=== PATIENT | female | born 1950 | race American Indian/Alaskan Native ===

== ENCOUNTER 2019-01-25 11:18 | Outpatient (CLI) | payer BC ==
--- NOTE | 2019-01-25 14:14 | Ultrasound Report ---
Bladder Ultrasound HISTORY: URINE INCONTINENCE. TECHNIQUE: Grayscale and color Doppler imaging performed. COMPARISON: None FINDINGS: Prevoid bladder volume was 91 mL. Post void volume was 1 mL. No obvious mass or wall thicke paulo. IMPRESSION: No significant urinary retention. Signer Name: Andrew Rene MD Signed: 01/25/2019 2:09 PM Workstation Name: [id number]
== END 2019-01-25 11:19 | disposition home or self-care (01) ==
LOC: US 11:18
PROVIDERS: ATTEND Internal Medicine
DX: R32 Unspecified urinary incontinence (principal)
CPT/HCPCS: 76857